=== PATIENT | female | born 1965 | race Caucasian/White ===

== ENCOUNTER 2019-04-04 03:42 | Observation (INO) ==
[2019-04-04 04:35] LABS: Basophils # 0.1 K/mcL (0.0-0.2); Basophils % 0.6 %; Eosinophils # 0.3 K/mcL (0.0-0.6); Eosinophils % 3.3 %; Hematocrit 37.1 % (35.3-44.9); Hemoglobin 12.1 g/dL (11.5-15.4); Immature Granulocytes % 0.6 % (0-4); Lymphocytes # 2.2 K/mcL (0.6-4.6); Lymphocytes % 27.3 %; Mean Corpuscular HGB Conc 32.6 g/dL (31.6-35.5); Mean Corpuscular Hemoglobin 28.7 pg (28.0-33.3); Mean Corpuscular Volume 88.1 fL (83.0-100.0); Mean Platelet Volume 9.7 fL (9.4-12.4); Monocytes # 0.6 K/mcL (0.0-1.3); Monocytes % 7.8 %; Neutrophils # 4.9 K/mcL (1.6-8.9); Platelet Count 367 K/mcL (140-400); Red Blood Count 4.21 M/mcL (3.82-4.97); Red Cell Distribution Width 13.2 % (11.5-14.5); Segmented Neutrophils % 60.4 %; White Blood Count 8.2 K/mcL (4.3-11.1)
[2019-04-04 04:42] LABS: Prothrombin Time 11.6 Seconds (9.4-12.1)
[2019-04-04 04:45] LABS: Activated Partial Thrombo Time 34.9 Seconds (26.0-36.0)
[2019-04-04 04:58] LABS: Alanine Aminotransferase 17 Units/L (7-52); Albumin 3.9 g/dL (3.5-5.7); Albumin/Globulin Ratio 1.2 (1.1-2.2); Alkaline Phosphatase 94 Units/L (34-104); Aspartate Amino Transferase 15 Units/L (13-39); BUN/Creatinine Ratio 17 (6-26); Bilirubin,Direct 0.1 mg/dL (0.0-0.2); Bilirubin,Indirect 0.3 mg/dL (0.0-1.2); Bilirubin,Total 0.4 mg/dL (0.3-1.0); Blood Urea Nitrogen 10 mg/dL (6-20); Calcium 9.8 mg/dL (8.6-10.3); Carbon Dioxide 27 mEq/L (23-29); Chloride 103 mEq/L (98-107); Globulin 3.3 g/dL (2.4-3.5); Glucose 117 mg/dL (70-105); Lipase 19 Units/L (11-82); Osmolality,Calculated 284 (280-300); Potassium 3.4 mEq/L (3.5-5.1); Sodium 137 mEq/L (136-145); Total Protein 7.2 g/dL (6.4-8.9); Troponin I < 0.03 ng/mL (< 0.04); eGFR For African Americans > 60 (> 60); eGFR For Non-African Americans > 60 (> 60)
[2019-04-04] MEDS ORDERED: Aspirin 81 MG TAB.CHEW PO STA (05:03)
[2019-04-04] MEDS ORDERED: Acetaminophen 325 MG TABLET PO PRN (07:37)
[2019-04-04] MEDS ORDERED: Ondansetron 4 MG/2 ML VIAL IVP PRN (07:37)
[2019-04-04] MEDS ORDERED: Furosemide 20 MG TABLET PO PRN (07:48)
[2019-04-04] MEDS ORDERED: Famotidine 20 MG TABLET PO SCH (09:00)
[2019-04-04] MEDS ORDERED: Losartan/HCTZ 50-12.5 TABLET PO SCH (09:00)
[2019-04-04 09:14] LABS: Chol/HDL Ratio 2.9 (0-4.9)
[2019-04-04 09:44] LABS: Estimated Average Glucose 126 mg/dl
[2019-04-04] MEDS: Nitroglycerin 0.4 MG TAB.SUBL SL SCH ×3 (10:05→10:08)
[2019-04-04] MEDS ORDERED: Perflutren Lipid Microsphere 1.3 ML in 0.9 % Sodium Chloride 8.7 ML IVP ONE (10:21)
[2019-04-04 11:00] VITALS: BP 137/86
== END 2019-04-04 15:11 | disposition home or self-care (01) ==
LOC: EMEROOARM 03:42 → 3BNU 03:42 → SUATTDRO 06:02 → 3BNU 06:12
PROVIDERS: ADMIT Internal Medicine; ATTEND Internal Medicine

== ENCOUNTER 2019-07-06 12:15 | Observation (INO) ==
[2019-07-06] MEDS ORDERED: Nitroglycerin 0.4 MG TAB.SUBL SL PRN (12:20)
[2019-07-06 12:51] LABS: Basophils % 0.7 %; Eosinophils # 0.1 K/mcL (0.0-0.6); Eosinophils % 1.3 %; Hematocrit 39.5 % (35.3-44.9); Hemoglobin 13.3 g/dL (11.5-15.4); Immature Granulocytes % 0.5 % (0-4); Lymphocytes # 1.1 K/mcL (0.6-4.6); Lymphocytes % 18.3 %; Mean Corpuscular HGB Conc 33.7 g/dL (31.6-35.5); Mean Corpuscular Hemoglobin 28.9 pg (28.0-33.3); Mean Corpuscular Volume 85.7 fL (83.0-100.0); Mean Platelet Volume 9.7 fL (9.4-12.4); Monocytes # 0.3 K/mcL (0.0-1.3); Monocytes % 5.6 %; Neutrophils # 4.5 K/mcL (1.6-8.9); Platelet Count 348 K/mcL (140-400); Red Blood Count 4.61 M/mcL (3.82-4.97); Red Cell Distribution Width 13.7 % (11.5-14.5); Segmented Neutrophils % 73.6 %; White Blood Count 6.1 K/mcL (4.3-11.1)
[2019-07-06 13:10] LABS: BUN/Creatinine Ratio 13 (6-26); Blood Urea Nitrogen 8 mg/dL (6-20); Calcium 9.8 mg/dL (8.6-10.3); Carbon Dioxide 28 mEq/L (23-29); Chloride 102 mEq/L (98-107); Glucose 144 mg/dL (70-105); Osmolality,Calculated 291 (280-300); Potassium 3.5 mEq/L (3.5-5.1); Sodium 140 mEq/L (136-145); Troponin I < 0.03 ng/mL (< 0.04); eGFR For African Americans > 60 (> 60); eGFR For Non-African Americans > 60 (> 60)
[2019-07-06 13:19] LABS: Prothrombin Time 11.9 Seconds (9.4-12.1)
[2019-07-06 13:22] LABS: Activated Partial Thrombo Time 36.7 Seconds (26.0-36.0)
[2019-07-06] MEDS ORDERED: Ondansetron 4 MG/2 ML VIAL IVP PRN (13:22)
[2019-07-06] MEDS ORDERED: Naloxone 0.4 MG/ML INJ IVP PRN (13:22)
[2019-07-06] MEDS ORDERED: *HR* Heparin 5,000 UNIT/ML VIAL IVP PRN ×2 (13:25)
[2019-07-06] MEDS ORDERED: *HR* Heparin 5,000 UNIT/ML VIAL IVP ONE (13:25)
[2019-07-06] MEDS ORDERED: Heparin 25,000 UNIT/250 ML D5W 25,000 UNIT/250 ML IV.SOLN IVC SCH (13:30)
[2019-07-06] MEDS ORDERED: Nitroglycerin 1,000 MCG/10 ML VIAL IV ONE (14:11)
[2019-07-06] MEDS ORDERED: *HR* Heparin 10,000 UNIT/10 ML VIAL ONE (14:11)
[2019-07-06] MEDS ORDERED: Heparin 1,000 UNITS/500 mL 500 ML ONE (14:11)
[2019-07-06] MEDS ORDERED: 0.9 % Sodium Chloride 1,000 ML ONE (14:11)
[2019-07-06] MEDS ORDERED: ISOVUE-370 200 ML INFUS..BTL ONE (14:11)
[2019-07-06] MEDS ORDERED: Verapamil 5 MG/2 ML VIAL ONE (14:22)
[2019-07-06] MEDS ORDERED: *HR* Midazolam HCl 2 MG/2 ML VIAL ONE ×2 (14:33→15:04)
[2019-07-06] MEDS ORDERED: *HR* FentaNYL (PF) 100 MCG/2 ML VIAL ONE ×2 (14:33→15:04)
[2019-07-06] MEDS: *HR* Heparin 5,000 UNIT/ML VIAL SQ SCH (16:08)
[2019-07-06] MEDS: Aspirin 81 MG TAB.CHEW PO SCH (16:09)
[2019-07-06] MEDS: Famotidine 20 MG TABLET PO SCH (20:45)
[2019-07-06] MEDS ORDERED: Acetaminophen 325 MG TABLET PO ONE (21:44)
[2019-07-07 05:31] LABS: Basophils % 0.6 %; Eosinophils # 0.2 K/mcL (0.0-0.6); Eosinophils % 2.7 %; Hematocrit 36.5 % (35.3-44.9); Hemoglobin 11.9 g/dL (11.5-15.4); Immature Granulocytes % 0.3 % (0-4); Lymphocytes % 29.7 %; Mean Corpuscular HGB Conc 32.6 g/dL (31.6-35.5); Mean Corpuscular Hemoglobin 28.5 pg (28.0-33.3); Mean Corpuscular Volume 87.3 fL (83.0-100.0); Monocytes # 0.6 K/mcL (0.0-1.3); Monocytes % 8.3 %; Platelet Count 342 K/mcL (140-400); Red Blood Count 4.18 M/mcL (3.82-4.97); Red Cell Distribution Width 13.9 % (11.5-14.5); Segmented Neutrophils % 58.4 %; White Blood Count 6.8 K/mcL (4.3-11.1)
[2019-07-07] MEDS: *HR* Heparin 5,000 UNIT/ML VIAL SQ SCH (05:39)
[2019-07-07 05:43] LABS: BUN/Creatinine Ratio 20 (6-26); Blood Urea Nitrogen 13 mg/dL (6-20); Calcium 9.3 mg/dL (8.6-10.3); Carbon Dioxide 29 mEq/L (23-29); Chloride 104 mEq/L (98-107); Glucose 133 mg/dL (70-105); Osmolality,Calculated 296 (280-300); Phosphorous 2.9 mg/dL (2.7-4.5); Potassium 3.5 mEq/L (3.5-5.1); Sodium 142 mEq/L (136-145); eGFR For African Americans > 60 (> 60); eGFR For Non-African Americans > 60 (> 60)
[2019-07-07 07:00] VITALS: BP 121/73
[2019-07-07] MEDS: Aspirin 81 MG TAB.CHEW PO SCH (08:56)
[2019-07-07] MEDS: Famotidine 20 MG TABLET PO SCH (08:56)
[2019-07-07] MEDS ORDERED: Losartan/HCTZ 50-12.5 TABLET PO SCH ×2 (09:00)
== END 2019-07-07 10:35 | disposition home or self-care (01) ==
LOC: EMEROOARM 12:15 → 3BNU 12:15
PROVIDERS: ADMIT Student in an Organized Health Care Education/Training Program; ATTEND Student in an Organized Health Care Education/Training Program